=== PATIENT | female | born 1945 | race Caucasian/White ===

== ENCOUNTER 2017-06-28 11:20 | Emergency (ER) | payer MEDICARE ==
[~2017-06-28] VITALS: Ht 170.2 cm; Wt 95.0 kg
[2017-06-28] MEDS ORDERED: CYMBALTA30 MG PO (11:37)
[2017-06-28] MEDS ORDERED: LISINOPRIL20 MG PO (11:37)
[2017-06-28] MEDS ORDERED: ATENOLOL50 MG PO (11:37)
[2017-06-28] MEDS ORDERED: MELOXICAM7.5 MG PO (11:38)
[2017-06-28] MEDS ORDERED: METFORMIN500 M1 PO (11:38)
[2017-06-28] MEDS ORDERED: PRAVASTATIN20 MG PO (11:38)
[2017-06-28 11:57] LABS: URINE BILIRUBIN - DIPSTICK NEGATIVE (NEGATIVE); URINE BLOOD DIPSTICK SMALL (NEGATIVE); URINE COLOR YELLOW; URINE GLUCOSE - DIPSTICK NEGATIVE (NEGATIVE); URINE KETONE NEGATIVE (NEGATIVE); URINE NITRITE - DIPSTICK NEGATIVE (Negative); URINE PROTEIN - DIPSTICK 30 mg/dL (NEG-TRACE); URINE SPECIFIC GRAVITY >=1.030; URINE UROBILINOGEN - DIPSTICK 0.2 E.U./dL (0.2)
[2017-06-28 12:34] LABS: URINE LEUK ESTERASE SMALL (NEGATIVE)
[2017-06-28 12:35] LABS: URINE CLARITY CLOUDY
[2017-06-28 12:43] LABS: URINE BACTERIA FEW hpf; URINE RBC 25-50 RBC/hpf (0-5); URINE SQUAMOUS EPITHELIAL CELL FEW EPI/hpf (0-FEW); URINE WBC 20-50 WBC/hpf (0-5)
[2017-06-28] MEDS ORDERED: DOXYCYC MONO100 M1 PO (12:48)
[2017-06-28 12:55] VITALS: BP 158/75
== END 2017-06-28 12:55 | disposition home or self-care (01) ==
LOC: ED 11:20
PROVIDERS: Family Medicine
DX: N39.0 Urinary tract infection, site not specified (principal); B96.1 Klebsiella pneumoniae [K. pneumoniae] as the cause of diseases classified elsewhere; R30.0 Dysuria; I10 Essential (primary) hypertension